=== PATIENT | female | born 1965 | race African-American/Black ===

== ENCOUNTER 2016-09-22 17:18 | Observation (INO) | payer MEDICARE, OTHER ==
--- NOTE | ~2016-09-22 | HP ---
History And Physical [place] [id number] [facility] [place]. [address] NAME: TARYN KINSEY : 67 STATUS : ADM IN [facility]#: [id number] AGE: 51 ADM/REG DATE : 09/22/16 MR#: [id number] REPORT SERV DATE: 09/23/16 DICTATED BY: ONI NOYOLA DATE: 09/22/16 REPORT STATUS : Draft TRANSCRIBED BY: MODMarissa DATE: 09/22/16 DATE OF ADMISSION: 09/22/2016 CHIEF COMPLAINT: Shortness of breath. HISTORY OF PRESENT ILLNESS: The patient is a 51-year-old female with a longstanding history of asthma was in Dr. Jenaro Vivar's office for a followup of her breast cancer. Last week she found out that she had recurrence of her breast cancer in the right breast and had biopsy done by Dr. Alfaro, and she has been awaiting the results of it. She says she just became very anxious and was unable to wait for the biopsy. She has been quite a bit depressed and has been taking multiple medications over the diagnosis of her breast cancer, especially she had lung mets that had resolved and now she has breast cancer reappearance in the right breast. She started having bronchospasm. She started having cough and wheezing. She denied any fever or chills. She has not had any nausea or vomiting. She said she just could not handle it and had a breakdown, so she has been referred to the hospital for further treatment and evaluation. REVIEW OF SYSTEMS: A 10-point review of systems otherwise is negative. PAST MEDICAL HISTORY: Significant for breast cancer diagnosed in 2014, with known mets to the lungs that has now resolved. It is HER-2 positive. She finished radiation and chemo. Negative PET CT in December of 2015, followed by Jenaro Vivar. Now local recurrence in the right breast. She has type 2 diabetes mellitus, gastroparesis, severe asthma, hypertension, neuropathy, radiation lung fibrosis, depression, anxiety, and tachycardia. PAST SURGICAL HISTORY: Significant for bilateral mastectomy, cholecystectomy in October 2015, left ankle surgery, appendectomy, hysterectomy, lung biopsy in January 2015, and left Port A-Cath placed. ALLERGIES: ALLERGIES TO IV CONTRAST, PENICILLIN, HYDROCODONE, AND VANCOMYCIN. HOME MEDICATIONS: Include Ventolin 4 times daily, amlodipine 7.5 mg once daily, atenolol 25 mg two times daily, Zanaflex 4 mg three times daily, Valium 5 mg once at bedtime, dicyclomine 20 mg one time daily, Lyrica 50 mg three times daily, insulin N 60 units in the morning and 40 units in the evening, Spiriva 2 times daily, Imodium p.r.n., losartan 100 mg daily, Breo Ellipta 200 mcg once daily, Singulair 10 mg daily, Prilosec 40 mg daily, Percocet 5 mg four times daily, potassium 20 mEq daily, Phenergan 25 mg p.r.n., Valtrex 500 mg once daily, Trintellix 10 mg once daily, and Ativan 0.5 mg p.r.n. for anxiety. SOCIAL HISTORY: No tobacco abuse. Occasional alcohol use. The patient is on disability, but used to work in accounting. She has a grown daughter who lives alone. FAMILY HISTORY: Aunt with ovarian cancer. Strong family history of diabetes. No family History And Physical [address] [address] NAME: TARYN KINSEY : 67 STATUS : ADM IN [facility]#: [id number] AGE: 51 ADM/REG DATE : 09/22/16 MR#: [id number] REPORT SERV DATE: 09/23/16 DICTATED BY: ONI NOYOLA DATE: 09/22/16 REPORT STATUS : Draft TRANSCRIBED BY: MARIA LUISA DATE: 09/22/16 history of breast cancer. PHYSICAL EXAMINATION: GENERAL: A white female, sitting on the bed, appears to be in mild respiratory distress. Appears more anxious than anything else. She is awake, alert. She is oriented. She has a very croupy type of cough with some upper airway bronchospasm. VITAL SIGNS: Blood pressure 156/70, pulse of 76, saturation of 94% on room air, temp is 98.5, and respiratory rate of 22. HEENT: Head is normocephalic and atraumatic. Pupils are equal, round, and reactive to light. Extraocular muscles are intact. Sclerae are anicteric. Conjunctivae are normal. Oropharynx without lesion. Tongue protrusion midline. Uvula midline. NECK: Supple. No jugular venous distention. No carotid bruits or thyromegaly is appreciated. No lymphadenopathy in the neck is palpable. HEART: Regular rate and rhythm. No murmurs, rubs, or gallops are heard. PMI non-displaced. LUNGS: Fairly clear to auscultation. Central airway wheezing is radiated into the periphery of the lungs. ABDOMEN: Obese, soft, and non-tender. Good bowel sounds. No rebound or guarding. No organomegaly. EXTREMITIES: Without cyanosis, clubbing, or edema. NEUROLOGIC: Seems to be grossly intact. LABORATORY DATA: All labs are pending at this time. IMPRESSION: 1. Most likely mild asthma exacerbation due to bronchospasm. 2. Severe anxiety and depression. 3. Type 2 diabetes mellitus. 4. Hypertension. 5. History of breast cancer that is HER-2 positive with recurrence. Probably a cause of severe anxiety and depression. 6. Obesity. PLAN: The patient will be admitted for observation. IV Ativan will be started every six hours. P.o. Seroquel will be started in the evening hours. Continue home medications and inhalers. No systemic or oral steroids will be used because of patient's risk of hypoglycemia and the fact that the asthma exacerbation is very mild. We will place her on sliding scale as well as home insulin. Dr. Vivar will see her regarding her cancer. The patient remains a full code. LINDSEY/MARIA LUISA Oni Noyola M.D. / [id number] History And Physical [address] [address] NAME: TARYN KINSEY : 67 STATUS : ADM IN [facility]#: [id number] AGE: 51 ADM/REG DATE : 09/22/16 MR#: [id number] REPORT SERV DATE: 09/23/16 DICTATED BY: ONI NOYOLA DATE: 09/22/16 REPORT STATUS : Draft TRANSCRIBED BY: MARIA LUISA DATE: 09/22/16 CC: Lili Dsouza MD Edward Arrowsmith, M.D.
--- NOTE | ~2016-09-22 | DS ---
Discharge Summary [facility] [address] [place]. [address] NAME: TARYN KINSEY : 67 STATUS : DIS Isiah PAT#: [id number] AGE: 51 ADM/REG DATE : 09/22/16 MR#: [id number] REPORT SERV DATE: 09/23/16 DICTATED BY: ROSLYN LOCKETT II DATE: 09/23/16 REPORT STATUS : Draft TRANSCRIBED BY: MODL DATE: 09/23/16 ADMISSION DATE: 09/22/2016 DISCHARGE DATE: 09/23/2016 DISCHARGE DIAGNOSES: 1. Shortness of breath, likely related to severe anxiety. 2. Major depressive disorder. 3. History of severe asthma, though no evidence of exacerbation at this point in time. 4. History of breast cancer with new recurrence. Followed by Dr. Vivar. 5. Diabetes mellitus type 2, on insulin. 6. History of gastroparesis. 7. History of hypertension. 8. History of peripheral neuropathy. 9. History of radiation lung fibrosis. BRIEF HISTORY OF PRESENT ILLNESS: The patient is a 51-year-old female with the above history, who presented to [facility] from Dr. Vivar's office due to concern for acute exacerbation of asthma. For detailed history and physical examination, please see Dr. Noyola's note from 09/22/2016. HOSPITAL COURSE: On admission, the patient is afebrile with only a mild increase in her white blood cell count 10.6. Chest x-ray was completely normal and procalcitonin was also negative. It seems the patient does not have any evidence of acute asthma as her lungs are completely clear with no evidence of wheezing. She does seem to have some self-induced upper airway inspiratory and expiratory wheezing which has been mostly relieved with Ativan and the initiation of Seroquel which she said she did notice an improvement after taking. At this point, no evidence of true sustained bronchospasm or asthma and the patient relates most of her symptoms to when she becomes quite anxious and goes into a panic attack. She sees a psychologist for this here weekly and takes Valium as well as Ativan as needed for severe anxiety and panic attacks. She is also on Trintellix and given the noted improvement on Seroquel, we will continue this at home and see if she notes some improvement in her symptoms. Otherwise, she has gained most benefit from her hospitalization and is on oral medicines, not on oxygen, and stable for discharge. DISCHARGE MEDICATIONS: 1. Norvasc 7.5 mg p.o. daily. 2. Atenolol 25 mg p.o. b.i.d. 3. Bentyl 20 mg p.o. four times a day. 4. Humulin 60 units subcu daily. 5. Humulin 40 units subcu at bedtime. 6. Ativan 0.5 mg p.o. b.i.d. p.r.n. anxiety. 7. Cozaar 100 mg p.o. daily. 8. Singulair 10 mg p.o. daily. 9. Prilosec 40 mg p.o. b.i.d. 10.K-Dur 20 mEq p.o. daily. 11.Lyrica 50 mg p.o. t.i.d. Discharge Summary [address] [address] NAME: TARYN KINSEY : 67 STATUS : DIS [facility] PAT#: [id number] AGE: 51 ADM/REG DATE : 09/22/16 MR#: [id number] REPORT SERV DATE: 09/23/16 DICTATED BY: ROSLYN LOCKETT II DATE: 09/23/16 REPORT STATUS : Draft TRANSCRIBED BY: MARIA LUISA DATE: 09/23/16 12.Seroquel 50 mg p.o. at bedtime. 13.Spiriva two puffs inhaled daily. 14.Zanaflex 4 mg p.o. t.i.d. 15.Valium 5 mg p.o. at bedtime. 16.Valtrex 500 mg p.o. daily. 17.Percocet one tab p.o. q.4 hours p.r.n. pain. 18.Phenergan 25 mg p.o. every meals. 19.Albuterol two puffs inhaled four times a day. 20.Breo Ellipta one puff inhaled daily. 21.Trintellix 10 mg p.o. daily. 22.Mag oxide 250 mg p.o. daily. 23.Flonase two sprays nasally three times p.r.n. 24.Visine allergy ophthalmic b.i.d. DISCHARGE INSTRUCTIONS: The patient will follow with Dr. Vivar in one to two weeks. Otherwise, she will follow with Dr. Bates next week as scheduled. OSMIN/MARIA LUISA Roslyn Lockett II, MD / [id number] CC: MD Omega Washington II, D.O.
[~2016-09-22 17:18] MED LIST: ACCUNEB INH; ADVAIR250 INH; ALBUTEROL5 INH; AT25 PO; ATEN25 PO; ATV.5 PO; ATV1 PO; BENTYL20 PO; CHEMO IV; CHEMO-THERAPY IV; CLARIT10 PO; CLEOCIN300 MG PO; COZ50 PO; COZAAR100 MG PO; DORYX100 MG PO; DULERA 100 MCG/13 GM INH; DULERA 200 MCG/13 GM INH; EFFEXOR XR150 MG PO; ENDOCET1 TAB PO; FLEX PO; FLONASE NAS; GGDM5ML PO; HUMALOG SC; HUMULIN N1 ML SC; HYZAAR 100/25 T1 TAB PO; IMOD PO; INSNOVN SC; KDUR20 PO; KLOR-CON M2020 MEQ PO; L40 PO; LEVAQUIN750 MG PO; LEXAPRO20 PO; MEDROLPAK4; MIRALAXPKT PO; MVI PO; NEUR300 PO; NEUR400 PO; NEUR800 PO; NORV5 PO; NORVASC PO; P10 PO; P20 PO; PCET PO; PERCOCET1 TA2 PO; PR25 PO; PRILO PO; PRILOSEC40 MG PO; PROAIR HFA INH; PROVENTSOL INH; PROVHFA INH; SENTAB PO; SINGULAIR1 PO; SPIRIVA INH; T PO; TAMOXIFEN20 M1 PO; TESSALON200 MG PO; TRINTELLIX 5 MG PO; TUSSIN DM1 M1 PO; ULTRAM50 PO; V5 PO; VALIUM10 MG PO; VALTREX5 PO; X5 PO; XIFAXAN550 MG PO; XOPEN0.5ML INH; XOPENEX HFA INH; ZOFRAN8 PO
[2016-09-22] MEDS ORDERED: VENTOLIN HFA INH (18:47)
[2016-09-22] MEDS ORDERED: ZANAFLEX 4 MG TA4 MG PO (18:50)
[2016-09-22] MEDS ORDERED: V5 PO (18:51)
[2016-09-22] MEDS ORDERED: LYRICA50 PO (18:55)
[2016-09-22 18:57] LABS: BASOPHILS 0.3 %; BASOPHILS ABSOLUTE 0.03 10/3/uL (0.0-0.16); EOSINOPHILS 1.3 %; EOSINOPHILS ABSOLUTE 0.14 10/3/uL (0.0-0.53); HEMATOCRIT 37.5 % (36.0-48.0); HEMOGLOBIN 11.8 g/dL (12.0-16.0); IMMATURE GRANULOCYTES 0.2 %; IMMATURE GRANULOCYTES ABSOLUTE 0.02 10/3/uL (0.0-0.11); LYMPHOCYTES 39.4 %; LYMPHOCYTES ABSOLUTE 4.17 10/3/uL (0.67-4.30); MANUAL DIFF NO %; MEAN CORPUS HGB CONC 31.5 g/dL (32.0-36.0); MEAN CORPUSCULAR HEMOGLOB 27.6 pg (26.0-34.0); MEAN CORPUSCULAR VOLUME 87.6 fL (80-100); MEAN PLATELET VOLUME 9.6 fL (9.2-13.0); MONOCYTES 6.6 %; NEUTROPHILS 52.2 %; NEUTROPHILS ABSOLUTE 5.52 10/3/uL (2.02-8.40); PLATELET COUNT 278 10/3/uL (150-400); RED CELL COUNT 4.28 10/6/uL (4.0-5.6); WHITE BLOOD CELLS 10.6 10/3/uL (4.5-10.5)
[2016-09-22] MEDS ORDERED: BREO ELLIPTA 21 EACH INH (18:57)
[2016-09-22] MEDS ORDERED: COZAAR100 MG PO (18:57)
[2016-09-22] MEDS ORDERED: TRINTELLIX10 MG PO (19:03)
[2016-09-22] MEDS ORDERED: SPIRIVA RESPIMAT INH (19:05)
[2016-09-22] MEDS ORDERED: ATV.5 PO (19:07)
[2016-09-22 19:08] LABS: A/G RATIO 0.8 (0.7-1.9); ALBUMIN 3.3 G/DL (3.5-5.0); ALKALINE PHOSPHATASE 129 U/L (45-117); BUN (BLOOD UREA NITROGEN) 9 MG/DL (6-23); CALCIUM, SERUM 9.2 MG/DL (8.5-10.4); CHLORIDE, SERUM 101 MMOL/L (96-112); CO2 (CARBON DIOXIDE) 29 MMOL/L (24-34); CREATININE 0.78 MG/DL (0.55-1.02); GFR AFRICAN AMERICAN 103 ML/MIN (>=60); GFR NON AFRICAN AMERICAN 89 ML/MIN (>=60); GLOBULIN 3.9 G/DL (2.5-4.1); GLUCOSE, SERUM 89 MG/DL (60-99); POTASSIUM, SERUM 3.3 MMOL/L (3.5-5.3); SGOT(AST) 22 U/L (5-40); SGPT(ALT) 22 U/L (5-65); SODIUM, SERUM 140 MMOL/L (135-148); TOTAL BILIRUBIN 0.2 MG/DL (0-1.2); TOTAL PROTEIN 7.2 G/DL (6.0-8.5)
[2016-09-22 19:42] LABS: PROCALCITONIN <0.05 ng/mL (<0.5)
[2016-09-22] MEDS ORDERED: MAG OXIDE250 MG PO (22:08)
[2016-09-22] MEDS ORDERED: FLONASE NAS (22:09)
[2016-09-22] MEDS ORDERED: VISINE-A EYE AL15 ML OPH (22:10)
[2016-09-22] MEDS ORDERED: OCEAN NAS (22:11)
[2016-09-22] MEDS ORDERED: VICKS VAPO RUB TOP (22:12)
[2016-09-23 04:48] LABS: ALBUMIN 2.8 G/DL (3.5-5.0); CALCIUM, SERUM 8.6 MG/DL (8.5-10.4); CHLORIDE, SERUM 104 MMOL/L (96-112); CO2 (CARBON DIOXIDE) 32 MMOL/L (24-34); CREATININE 0.74 MG/DL (0.55-1.02); GFR AFRICAN AMERICAN 109 ML/MIN (>=60); GFR NON AFRICAN AMERICAN 94 ML/MIN (>=60); GLUCOSE, SERUM 82 MG/DL (60-99); POTASSIUM, SERUM 3.7 MMOL/L (3.5-5.3); SODIUM, SERUM 140 MMOL/L (135-148)
[2016-09-23 04:50] LABS: BUN (BLOOD UREA NITROGEN) 13 MG/DL (6-23); PHOSPHORUS, SERUM 3.4 MG/DL (2.5-4.5)
[2016-09-23 04:54] LABS: BASOPHILS 0.3 %; BASOPHILS ABSOLUTE 0.03 10/3/uL (0.0-0.16); EOSINOPHILS 1.4 %; EOSINOPHILS ABSOLUTE 0.14 10/3/uL (0.0-0.53); HEMATOCRIT 34.7 % (36.0-48.0); HEMOGLOBIN 11.1 g/dL (12.0-16.0); IMMATURE GRANULOCYTES 0.2 %; IMMATURE GRANULOCYTES ABSOLUTE 0.02 10/3/uL (0.0-0.11); LYMPHOCYTES 34.7 %; LYMPHOCYTES ABSOLUTE 3.56 10/3/uL (0.67-4.30); MEAN CORPUSCULAR HEMOGLOB 28.2 pg (26.0-34.0); MEAN CORPUSCULAR VOLUME 88.1 fL (80-100); MEAN PLATELET VOLUME 9.7 fL (9.2-13.0); MONOCYTES 7.7 %; MONOCYTES ABSOLUTE 0.79 10/3/uL (0.21-1.20); NEUTROPHILS 55.7 %; NEUTROPHILS ABSOLUTE 5.71 10/3/uL (2.02-8.40); PLATELET COUNT 253 10/3/uL (150-400); RBC DISTRIBUTION WIDTH 15.9 % (12.0-16.0); RED CELL COUNT 3.94 10/6/uL (4.0-5.6); WHITE BLOOD CELLS 10.3 10/3/uL (4.5-10.5)
[2016-09-23 04:58] LABS: MANUAL DIFF NO %
[2016-09-23] MEDS ORDERED: SEROQUEL50 MG PO (11:59)
[2016-11-02] MEDS ORDERED: *UNABLE3 (23:39)
[2016-11-03] MEDS ORDERED: EFFEXOR XR150 MG PO (14:30)
[2016-11-03] MEDS ORDERED: KLOR-CON M2020 MEQ PO (14:30)
[2016-11-03] MEDS ORDERED: MAG OXIDE250 MG PO (14:30)
[2016-11-03] MEDS ORDERED: ATEN25 PO (14:31)
[2016-11-03] MEDS ORDERED: VALTREX5 PO (14:31)
[2016-11-03] MEDS ORDERED: HUMULIN N1 ML SC ×2 (14:31)
[2016-11-03] MEDS ORDERED: BENTYL20 PO (14:32)
[2016-11-03] MEDS ORDERED: PRILOSEC40 MG PO (14:32)
[2016-11-03] MEDS ORDERED: HYZAAR 100/25 T1 TAB PO (14:33)
[2016-11-03] MEDS ORDERED: ZANAFLEX 4 MG TA4 MG PO (14:33)
[2016-11-03] MEDS ORDERED: ATV1 PO (14:34)
[2016-11-03] MEDS ORDERED: HUMALOG SC (14:34)
[2016-11-03] MEDS ORDERED: LEXAPRO20 PO (14:34)
[2016-11-03] MEDS ORDERED: VENTOLIN HFA INH (14:35)
[2016-11-03] MEDS ORDERED: THERGRANM PO (14:35)
[2016-11-03] MEDS ORDERED: PR25 PO (14:35)
[2016-11-03] MEDS ORDERED: BREO ELLIPTA 21 EACH INH (14:35)
[2016-11-03] MEDS ORDERED: NORV25 PO (14:35)
[2016-11-03] MEDS ORDERED: SPIRIVA RESPIMAT INH (14:36)
[2016-11-05] MEDS ORDERED: LEXAPRO20 PO (08:36)
[2016-11-05] MEDS ORDERED: ABILIFY5 PO (08:39)
[2016-11-12] MEDS ORDERED: V5 PO (20:01)
[2016-11-12] MEDS ORDERED: OCEAN NAS (20:03)
[2016-11-12] MEDS ORDERED: PCET PO (20:05)
[2016-11-12] MEDS ORDERED: DIL2TAB PO (20:07)
[2016-11-12] MEDS ORDERED: CLARIT10 PO (20:08)
[2016-11-12] MEDS ORDERED: LYRICA50 PO (20:08)
[2016-11-12] MEDS ORDERED: SINGULAIR1 PO (20:12)
[2016-11-12] MEDS ORDERED: NEUR800 PO (20:13)
[2016-11-12] MEDS ORDERED: GLUCOSE TAB PO (20:21)
[2016-11-12] MEDS ORDERED: PEP20 PO (20:21)
[2016-11-12] MEDS ORDERED: LIDOCAINE GEL TOP (20:26)
[2016-11-12] MEDS ORDERED: CLEAR EYE1 OPH (20:28)
[2016-11-12] MEDS ORDERED: ATROVENTUD INH (20:30)
[2016-11-21] MEDS ORDERED: BENTYL20 PO (12:14)
[2016-11-21] MEDS ORDERED: ZANAFLEX 4 MG TA4 MG PO (12:14)
[2016-11-21] MEDS ORDERED: PRILOSEC40 MG PO (12:15)
[2016-11-21] MEDS ORDERED: PCET PO (12:16)
[2016-11-21] MEDS ORDERED: KLOR-CON M2020 MEQ PO (12:16)
[2016-11-21] MEDS ORDERED: PR25 PO (12:17)
[2016-11-21] MEDS ORDERED: LEXAPRO20 PO (12:17)
[2016-11-21] MEDS ORDERED: NORV5 PO (12:17)
[2016-11-21] MEDS ORDERED: DIL2TAB PO (12:18)
[2016-11-21] MEDS ORDERED: SPIRIVA INH (12:19)
[2016-11-21] MEDS ORDERED: BREO ELLIPTA INH (12:19)
[2016-11-21] MEDS ORDERED: ATV1 PO (12:19)
[2016-11-21] MEDS ORDERED: VENTOLIN HFA INH (12:20)
[2016-11-21] MEDS ORDERED: SEROQUEL50 MG PO (12:20)
[2016-11-21] MEDS ORDERED: VALTREX5 PO (12:20)
[2016-11-21] MEDS ORDERED: V5 PO (12:21)
[2016-11-21] MEDS ORDERED: TRINTELLIX10 MG PO (12:21)
[2016-11-21] MEDS ORDERED: ATEN25 PO (12:22)
[2016-11-21] MEDS ORDERED: NEUR800 PO (12:24)
[2016-11-21] MEDS ORDERED: LYRICA50 PO (12:24)
[2016-11-21] MEDS ORDERED: HYZAAR 100/25 T1 TAB PO (12:27)
[2016-11-21] MEDS ORDERED: SINGULAIR1 PO (12:28)
== END 2016-09-23 13:43 | disposition home or self-care (01) ==
LOC: 4EA 17:18
PROVIDERS: Internal Medicine
DX: J45.901 Unspecified asthma with (acute) exacerbation (principal); F32.9 Major depressive disorder, single episode, unspecified; F41.9 Anxiety disorder, unspecified; E11.42 Type 2 diabetes mellitus with diabetic polyneuropathy; E11.43 Type 2 diabetes mellitus with diabetic autonomic (poly)neuropathy; K31.84 Gastroparesis; R00.0 Tachycardia, unspecified; I10 Essential (primary) hypertension; Z85.3 Personal history of malignant neoplasm of breast; E66.9 Obesity, unspecified; Z92.3 Personal history of irradiation; Z88.0 Allergy status to penicillin; Z88.1 Allergy status to other antibiotic agents; Z88.5 Allergy status to narcotic agent; Z90.13 Acquired absence of bilateral breasts and nipples; Z90.49 Acquired absence of other specified parts of digestive tract; Z90.710 Acquired absence of both cervix and uterus; Z98.890 Other specified postprocedural states; Z79.4 Long term (current) use of insulin
CPT/HCPCS: 71020; 80053; 80069; 82962; 84145; 85025; 94640; 96372; 96374; 96375; 96376; A9270-GY; G0378; J1170; J2405

== ENCOUNTER 2016-10-06 06:55 | Emergency (ER) | payer MEDICARE, OTHER ==
[~2016-10-06 06:55] MED LIST changes: +BREO ELLIPTA 21 EACH INH; +LYRICA50 PO; +MAG OXIDE250 MG PO; +OCEAN NAS; +SEROQUEL50 MG PO; +SPIRIVA RESPIMAT INH; +TRINTELLIX10 MG PO; +VENTOLIN HFA INH; +VICKS VAPO RUB TOP; +VISINE-A EYE AL15 ML OPH; +ZANAFLEX 4 MG TA4 MG PO
[2016-10-06 07:17] LABS: BASOPHILS 0.2 %; BASOPHILS ABSOLUTE 0.02 10/3/uL (0.0-0.16); EOSINOPHILS 0.8 %; EOSINOPHILS ABSOLUTE 0.09 10/3/uL (0.0-0.53); HEMOGLOBIN 12.5 g/dL (12.0-16.0); IMMATURE GRANULOCYTES 0.3 %; IMMATURE GRANULOCYTES ABSOLUTE 0.03 10/3/uL (0.0-0.11); LYMPHOCYTES 39.4 %; MEAN CORPUS HGB CONC 32.1 g/dL (32.0-36.0); MEAN CORPUSCULAR HEMOGLOB 28.1 pg (26.0-34.0); MEAN CORPUSCULAR VOLUME 87.6 fL (80-100); MEAN PLATELET VOLUME 9.6 fL (9.2-13.0); MONOCYTES 8.4 %; MONOCYTES ABSOLUTE 0.96 10/3/uL (0.21-1.20); NEUTROPHILS 50.9 %; NEUTROPHILS ABSOLUTE 5.83 10/3/uL (2.02-8.40); PLATELET COUNT 311 10/3/uL (150-400); RBC DISTRIBUTION WIDTH 15.8 % (12.0-16.0); RED CELL COUNT 4.45 10/6/uL (4.0-5.6); WHITE BLOOD CELLS 11.4 10/3/uL (4.5-10.5)
[2016-10-06 07:21] LABS: MANUAL DIFF NO %
[2016-10-06 07:34] LABS: A/G RATIO 0.9 (0.7-1.9); ALBUMIN 3.5 G/DL (3.5-5.0); ALKALINE PHOSPHATASE 133 U/L (45-117); BUN (BLOOD UREA NITROGEN) 12 MG/DL (6-23); CALCIUM, SERUM 9.4 MG/DL (8.5-10.4); CHLORIDE, SERUM 104 MMOL/L (96-112); CO2 (CARBON DIOXIDE) 30 MMOL/L (24-34); CREATININE 0.87 MG/DL (0.55-1.02); GFR AFRICAN AMERICAN 90 ML/MIN (>=60); GFR NON AFRICAN AMERICAN 78 ML/MIN (>=60); GLOBULIN 4.1 G/DL (2.5-4.1); GLUCOSE, SERUM 120 MG/DL (60-99); POTASSIUM, SERUM 3.4 MMOL/L (3.5-5.3); SGOT(AST) 22 U/L (5-40); SGPT(ALT) 30 U/L (5-65); SODIUM, SERUM 141 MMOL/L (135-148); TOTAL BILIRUBIN 0.2 MG/DL (0-1.2); TOTAL PROTEIN 7.6 G/DL (6.0-8.5)
[2016-11-02] MEDS ORDERED: *UNABLE3 (23:39)
[2016-11-03] MEDS ORDERED: EFFEXOR XR150 MG PO (14:30)
[2016-11-03] MEDS ORDERED: MAG OXIDE250 MG PO (14:30)
[2016-11-03] MEDS ORDERED: KLOR-CON M2020 MEQ PO (14:30)
[2016-11-03] MEDS ORDERED: VALTREX5 PO (14:31)
[2016-11-03] MEDS ORDERED: ATEN25 PO (14:31)
[2016-11-03] MEDS ORDERED: HUMULIN N1 ML SC ×2 (14:31)
[2016-11-03] MEDS ORDERED: PRILOSEC40 MG PO (14:32)
[2016-11-03] MEDS ORDERED: BENTYL20 PO (14:32)
[2016-11-03] MEDS ORDERED: ZANAFLEX 4 MG TA4 MG PO (14:33)
[2016-11-03] MEDS ORDERED: HYZAAR 100/25 T1 TAB PO (14:33)
[2016-11-03] MEDS ORDERED: ATV1 PO (14:34)
[2016-11-03] MEDS ORDERED: LEXAPRO20 PO (14:34)
[2016-11-03] MEDS ORDERED: HUMALOG SC (14:34)
[2016-11-03] MEDS ORDERED: NORV25 PO (14:35)
[2016-11-03] MEDS ORDERED: VENTOLIN HFA INH (14:35)
[2016-11-03] MEDS ORDERED: PR25 PO (14:35)
[2016-11-03] MEDS ORDERED: THERGRANM PO (14:35)
[2016-11-03] MEDS ORDERED: BREO ELLIPTA 21 EACH INH (14:35)
[2016-11-03] MEDS ORDERED: SPIRIVA RESPIMAT INH (14:36)
[2016-11-05] MEDS ORDERED: LEXAPRO20 PO (08:36)
[2016-11-05] MEDS ORDERED: ABILIFY5 PO (08:39)
[2016-11-12] MEDS ORDERED: V5 PO (20:01)
[2016-11-12] MEDS ORDERED: OCEAN NAS (20:03)
[2016-11-12] MEDS ORDERED: PCET PO (20:05)
[2016-11-12] MEDS ORDERED: DIL2TAB PO (20:07)
[2016-11-12] MEDS ORDERED: LYRICA50 PO (20:08)
[2016-11-12] MEDS ORDERED: CLARIT10 PO (20:08)
[2016-11-12] MEDS ORDERED: SINGULAIR1 PO (20:12)
[2016-11-12] MEDS ORDERED: NEUR800 PO (20:13)
[2016-11-12] MEDS ORDERED: PEP20 PO (20:21)
[2016-11-12] MEDS ORDERED: GLUCOSE TAB PO (20:21)
[2016-11-12] MEDS ORDERED: LIDOCAINE GEL TOP (20:26)
[2016-11-12] MEDS ORDERED: CLEAR EYE1 OPH (20:28)
[2016-11-12] MEDS ORDERED: ATROVENTUD INH (20:30)
[2016-11-21] MEDS ORDERED: BENTYL20 PO (12:14)
[2016-11-21] MEDS ORDERED: ZANAFLEX 4 MG TA4 MG PO (12:14)
[2016-11-21] MEDS ORDERED: PRILOSEC40 MG PO (12:15)
[2016-11-21] MEDS ORDERED: PCET PO (12:16)
[2016-11-21] MEDS ORDERED: KLOR-CON M2020 MEQ PO (12:16)
[2016-11-21] MEDS ORDERED: NORV5 PO (12:17)
[2016-11-21] MEDS ORDERED: PR25 PO (12:17)
[2016-11-21] MEDS ORDERED: LEXAPRO20 PO (12:17)
[2016-11-21] MEDS ORDERED: DIL2TAB PO (12:18)
[2016-11-21] MEDS ORDERED: ATV1 PO (12:19)
[2016-11-21] MEDS ORDERED: BREO ELLIPTA INH (12:19)
[2016-11-21] MEDS ORDERED: SPIRIVA INH (12:19)
[2016-11-21] MEDS ORDERED: VALTREX5 PO (12:20)
[2016-11-21] MEDS ORDERED: SEROQUEL50 MG PO (12:20)
[2016-11-21] MEDS ORDERED: VENTOLIN HFA INH (12:20)
[2016-11-21] MEDS ORDERED: TRINTELLIX10 MG PO (12:21)
[2016-11-21] MEDS ORDERED: V5 PO (12:21)
[2016-11-21] MEDS ORDERED: ATEN25 PO (12:22)
[2016-11-21] MEDS ORDERED: LYRICA50 PO (12:24)
[2016-11-21] MEDS ORDERED: NEUR800 PO (12:24)
[2016-11-21] MEDS ORDERED: HYZAAR 100/25 T1 TAB PO (12:27)
[2016-11-21] MEDS ORDERED: SINGULAIR1 PO (12:28)
== END 2016-10-06 08:50 | disposition home or self-care (01) ==
LOC: ER 06:55
PROVIDERS: Nurse Practitioner Acute Care
DX: R06.00 Dyspnea, unspecified (principal); J45.909 Unspecified asthma, uncomplicated; I10 Essential (primary) hypertension; F32.9 Major depressive disorder, single episode, unspecified; F41.9 Anxiety disorder, unspecified; Z85.3 Personal history of malignant neoplasm of breast; Z90.49 Acquired absence of other specified parts of digestive tract; Z98.890 Other specified postprocedural states; E11.9 Type 2 diabetes mellitus without complications; Z91.041 Radiographic dye allergy status; Z88.0 Allergy status to penicillin; Z88.5 Allergy status to narcotic agent; Z88.1 Allergy status to other antibiotic agents; Z91.048 Other nonmedicinal substance allergy status; Z79.899 Other long term (current) drug therapy; Z79.4 Long term (current) use of insulin
CPT/HCPCS: 36600; 71010; 80053; 82330; 82803; 82947; 84132; 84295; 85014; 85025; 93005; 94640; 96374; 99285; A9270-GY